=== PATIENT | male | born 1960 | race Caucasian/White ===

== ENCOUNTER 2016-09-28 10:55 | Inpatient (IN) | payer SELFPAY ==
[~2016-09-28] VITALS: Ht 180.3 cm; Wt 99.3 kg
[~2016-09-28 10:55] MED LIST: ALDACTONE 25MG25 M1 PO; AMOXICILLIN 50500 MG PO; ASPIRIN 32325 MG/TA1 PO; ASPIRIN E.C. 8181 MG PO; CORDARONE200 MG/TAB PO; COREG3.125 MG PO; COREG6.25 MG PO; FOLATE; IBUPROFEN 200200 MG PO; IMDUR30 MG PO; KLOR-CON 1010 MEQ PO; LANOXIN 0.25M0.25 MG PO; LASIX 40MG TABL40 MG PO; LASIX20 MG PO; LEVAQUIN 750MG750 M1 PO; LISINOPRIL10 MG PO; LOPRESSOR 225 MG/TAB PO; LOPRESSOR 550 MG/TAB PO; METOPROLOL TART25 MG PO; MOTRIN 400400 MG/TAB PO; MULTIPLE VITAMI1 CAP PO; POTASSIUM CL 220 MEQ PO; PREDNISONE10 MG PO; PREDNISONE20 MG PO; THIAMINE-100100 MG PO; TUSS PO; TYLENOL EXTRA500 M1 PO; VENTOLIN0.09 MG IH; VOLTAREN GEL 1%1 TU TP; ZESTRIL 10MG10 MG PO; ZESTRIL10 MG PO
[2016-09-28] MEDS ORDERED: TOPROL XL 25MG25 MG PO (11:40)
[2016-09-28] MEDS ORDERED: LASIX 20MG TABL20 MG PO (11:40)
[2016-09-28] MEDS ORDERED: ASPIRIN 32325 MG/TAB PO (11:41)
[2016-09-28] MEDS ORDERED: MOTRIN 400400 MG/TAB PO (11:41)
[2016-09-28 12:12] LABS: BASO # 0.1 (0.0-0.2); BASO % 0.6 % (0.0-2.0); EOS # 0.3 (0.0-0.7); EOS % 3.4 % (0-4.0); GRAN # 5.6 (1.4-6.5); GRAN % 57.4 % (42.2-75.2); HEMATOCRIT 42.7 % (42.0-52.0); HEMOGLOBIN 14.1 g/dl (13.5-18.0); LYMPH % 30.6 % (20.0-51.0); MEAN CELL VOLUME 94 fl (80.0-100.0); MEAN CORPUSCULAR HEMOGLOBIN 31 pg (27.0-31.0); MEAN CORPUSCULAR HGB CONC 33 g/dl (33.0-37.0); MEAN PLATELET VOLUME 9.9 fl (7.4-10.4); MONO # 0.7 (0.1-0.6); MONO % 7.3 % (1.7-9.3); PLATELET COUNT 266 K/mm3 (130-400); RED BLOOD COUNT 4.54 M/mm3 (4.20-5.60); REDCELL DISTRIBUTION WIDTH-CV 14.1 % (11.5-14.5); WHITE BLOOD COUNT 9.8 K/mm3 (4.8-10.8)
[2016-09-28 12:20] LABS: PARTIAL THROMBOPLASTIN TIME 34.7 SECONDS (26.0-37.0)
[2016-09-28 12:22] LABS: ADJUSTED CALCIUM 9.3 mg/dL (8.4-10.2); ALANINE AMINOTRANSFERASE 17 U/L (21-72); ALKALINE PHOSPHATASE 93 U/L (50-136); ANION GAP 12 mmol/L (7-16); BILIRUBIN,TOTAL 0.8 mg/dL (0.0-1.0); BLOOD UREA NITROGEN 23 mg/dL (9-20); CALCIUM 9.3 mg/dL (8.4-10.2); CARBON DIOXIDE 24 mmol/L (22-30); CHLORIDE 106 mmol/L (98-107); CREATININE, serum 0.87 mg/dL (0.66-1.25); GLUCOSE 94 mg/dL (74-106); LIPASE 53 U/L (23-300); POTASSIUM 4.5 mmol/L (3.4-5.0); SODIUM 142 mmol/L (137-145); TOTAL PROTEIN 7.5 gm/dL (6.4-8.2)
[2016-09-28 12:34] LABS: B-TYPE NATRIURETIC PEPTIDE 5810 pg/mL (0-125); INR 1.1 (0.8-3.0); PROTHROMBIN TIME 12.1 SECONDS (9.7-12.8)
[2016-09-28 12:40] LABS: TROPONIN-I < 0.012 ng/mL (0.000-0.034)
[2016-09-28] MEDS ORDERED: LASIX 40MG TABL40 MG PO (13:04)
[2016-09-28] MEDS ORDERED: LOPRESSOR 225 MG/TAB PO (13:05)
[2016-09-28 13:24] LABS: PH 5 (5-8); SQUAMOUS EPITHELIAL None Seen /hpf; URINE APPEARANCE Turbid; URINE BACTERIA None Seen /hpf; URINE BILIRUBIN Negative (NEGATIVE); URINE BLOOD Negative (NEGATIVE); URINE COLOR Amber; URINE GLUCOSE Negative (NEGATIVE); URINE KETONE Negative (NEGATIVE); URINE UROBILINOGEN Negative (NEGATIVE); URINE WBC None Seen /hpf
[2016-09-28 14:25] VITALS: BP 107/69; PULSE 77; TEMP 97.7
[2016-09-28 17:21] VITALS: BP 101/59; PULSE 75; TEMP 97.9
[2016-09-28 20:06] VITALS: BP 103/64; PULSE 80; TEMP 98.2
[2016-09-28 20:46] VITALS: BP 111/68; PULSE 80
[2016-09-28 22:42] VITALS: BP 96/61; PULSE 70; TEMP 97.9
[2016-09-28 23:30] VITALS: BP 106/76; PULSE 67
[2016-09-29] VITALS (316 sets, daily range): BP systolic 97–124; BP diastolic 62–97; PULSE 63–105; TEMP 97.6–98.4; O2SAT 90–100
[2016-09-29 15:20] LABS: CALCIUM 8.9 mg/dL (8.4-10.2); CREATININE, serum 0.8 mg/dL (0.66-1.25); MAGNESIUM 1.8 mg/dL (1.6-2.3); PHOSPHOROUS 3.9 mg/dL (2.5-4.5)
[2016-09-30] VITALS (18 sets, daily range): BP systolic 93–113; BP diastolic 50–71; PULSE 62–80; TEMP 97.1–98.3
[2016-09-30 07:04] LABS: BASO # 0.1 (0.0-0.2); BASO % 0.6 % (0.0-2.0); EOS # 0.4 (0.0-0.7); GRAN # 5.5 (1.4-6.5); GRAN % 57.9 % (42.2-75.2); HEMATOCRIT 42.5 % (42.0-52.0); HEMOGLOBIN 14.2 g/dl (13.5-18.0); LYMPH # 2.7 (1.2-3.4); LYMPH % 28.6 % (20.0-51.0); MEAN CELL VOLUME 93 fl (80.0-100.0); MEAN CORPUSCULAR HEMOGLOBIN 31 pg (27.0-31.0); MEAN CORPUSCULAR HGB CONC 33 g/dl (33.0-37.0); MEAN PLATELET VOLUME 10.5 fl (7.4-10.4); MONO # 0.8 (0.1-0.6); MONO % 8.6 % (1.7-9.3); PLATELET COUNT 252 K/mm3 (130-400); RED BLOOD COUNT 4.57 M/mm3 (4.20-5.60); REDCELL DISTRIBUTION WIDTH-CV 14.2 % (11.5-14.5); WHITE BLOOD COUNT 9.5 K/mm3 (4.8-10.8)
[2016-09-30 07:11] LABS: CALCIUM 9.1 mg/dL (8.4-10.2); CREATININE, serum 0.88 mg/dL (0.66-1.25); MAGNESIUM 1.9 mg/dL (1.6-2.3); PHOSPHOROUS 3.9 mg/dL (2.5-4.5); POTASSIUM 3.6 mmol/L (3.4-5.0)
[2016-09-30 07:19] LABS: INR 1.1 (0.8-3.0); PROTHROMBIN TIME 12.5 SECONDS (9.7-12.8)
[2016-10-01] VITALS (7 sets, daily range): BP systolic 91–118; BP diastolic 53–78; PULSE 43–78; TEMP 97.4–98.6
[2016-10-01 07:22] LABS: BASO % 0.5 % (0.0-2.0); EOS # 0.3 (0.0-0.7); EOS % 4.1 % (0-4.0); GRAN # 4.7 (1.4-6.5); GRAN % 59.5 % (42.2-75.2); LYMPH # 2.2 (1.2-3.4); LYMPH % 27.9 % (20.0-51.0); MEAN CELL VOLUME 93 fl (80.0-100.0); MEAN CORPUSCULAR HEMOGLOBIN 31 pg (27.0-31.0); MEAN CORPUSCULAR HGB CONC 33 g/dl (33.0-37.0); MEAN PLATELET VOLUME 10.2 fl (7.4-10.4); MONO # 0.6 (0.1-0.6); MONO % 7.6 % (1.7-9.3); PLATELET COUNT 240 K/mm3 (130-400); RED BLOOD COUNT 4.52 M/mm3 (4.20-5.60); REDCELL DISTRIBUTION WIDTH-CV 14.1 % (11.5-14.5); WHITE BLOOD COUNT 7.9 K/mm3 (4.8-10.8)
[2016-10-01 07:45] LABS: CALCIUM 9.3 mg/dL (8.4-10.2); CREATININE, serum 0.92 mg/dL (0.66-1.25); POTASSIUM 3.6 mmol/L (3.4-5.0)
[2016-10-01] MEDS ORDERED: CAPOTEN 12.512.5 MG PO (10:16)
[2016-10-01] MEDS ORDERED: PROTOP 0.03% 30GM TP (10:45)
[2016-10-02 03:57] VITALS: BP 99/62; PULSE 63; TEMP 98.2
[2016-10-02 07:21] LABS: BASO % 0.4 % (0.0-2.0); EOS # 0.3 (0.0-0.7); EOS % 3.2 % (0-4.0); GRAN # 4.8 (1.4-6.5); GRAN % 59.6 % (42.2-75.2); HEMATOCRIT 41.9 % (42.0-52.0); LYMPH # 2.2 (1.2-3.4); LYMPH % 27.4 % (20.0-51.0); MEAN CELL VOLUME 93 fl (80.0-100.0); MEAN CORPUSCULAR HEMOGLOBIN 31 pg (27.0-31.0); MEAN CORPUSCULAR HGB CONC 33 g/dl (33.0-37.0); MEAN PLATELET VOLUME 10.3 fl (7.4-10.4); MONO # 0.7 (0.1-0.6); MONO % 8.9 % (1.7-9.3); PLATELET COUNT 232 K/mm3 (130-400); RED BLOOD COUNT 4.51 M/mm3 (4.20-5.60); REDCELL DISTRIBUTION WIDTH-CV 13.9 % (11.5-14.5); WHITE BLOOD COUNT 8.1 K/mm3 (4.8-10.8)
[2016-10-02 07:50] VITALS: BP 105/65; PULSE 72; TEMP 96.3
[2016-10-02 08:12] LABS: CALCIUM 9.3 mg/dL (8.4-10.2); CREATININE, serum 1.05 mg/dL (0.66-1.25); POTASSIUM 3.5 mmol/L (3.4-5.0)
[2016-10-02] MEDS ORDERED: PACERONE400 MG PO (10:59)
[2016-10-02] MEDS ORDERED: COREG12.5 MG PO (11:00)
[2016-10-02] MEDS ORDERED: DEMADEX 20MG20 M1 PO (11:00)
== END 2016-10-02 13:23 | disposition home or self-care (01) | DRG 287 ==
LOC: COL.ER 10:55 → MEDICAL 13:26 → IMCU 09-29 00:07 → MEDICAL 09-29 12:25
PROVIDERS: Internal Medicine; Internal Medicine Cardiovascular Disease; Physician Assistant
PROC: B2111ZZ Fluoroscopy of Multiple Coronary Arteries using Low Osmolar Contrast (ICD-10-PCS; principal; 2016-09-30)
PROC: 4A023N7 Measurement of Cardiac Sampling and Pressure, Left Heart, Percutaneous Approach (ICD-10-PCS; 2016-09-30)
DX: I50.21 Acute systolic (congestive) heart failure (principal); I47.2 Ventricular tachycardia; I42.9 Cardiomyopathy, unspecified; M45.9 Ankylosing spondylitis of unspecified sites in spine; L40.50 Arthropathic psoriasis, unspecified; F17.210 Nicotine dependence, cigarettes, uncomplicated
CPT/HCPCS: 99223-AI; 99232-AI; 99239; C1769; C1894; J0282; J1644; J1650; J1940; J2250; J3010; J7060; Q9967

== ENCOUNTER 2018-08-12 10:54 | Inpatient (IN) | payer OTHER ==
[~2018-08-12] VITALS: Ht 152.4 cm; Wt 95.5 kg
[~2018-08-12 10:54] MED LIST changes: +ASPIRIN 32325 MG/TAB PO; +CAPOTEN 12.512.5 MG PO; +COREG12.5 MG PO; +DEMADEX 20MG20 M1 PO; +LASIX 20MG TABL20 MG PO; +PACERONE400 MG PO; +PROTOP 0.03% 30GM TP; +TOPROL XL 25MG25 MG PO
[2018-08-12 12:14] LABS: BASO # 0.1 (0.0-0.2); BASO % 0.7 % (0.0-2.0); EOS # 0.6 (0.0-0.7); EOS % 7.3 % (0-4.0); GRAN # 4.5 (1.4-6.5); GRAN % 55.5 % (42.2-75.2); HEMATOCRIT 38.7 % (42.0-52.0); HEMOGLOBIN 12.4 g/dl (13.5-18.0); LYMPH # 2.4 (1.2-3.4); LYMPH % 29.6 % (20.0-51.0); MEAN CELL VOLUME 93 fl (80.0-100.0); MEAN CORPUSCULAR HEMOGLOBIN 30 pg (27.0-31.0); MEAN CORPUSCULAR HGB CONC 32 g/dl (33.0-37.0); MEAN PLATELET VOLUME 9.7 fl (7.4-10.4); MONO # 0.5 (0.1-0.6); MONO % 6.7 % (1.7-9.3); PLATELET COUNT 272 K/mm3 (130-400); RED BLOOD COUNT 4.16 M/mm3 (4.20-5.60); REDCELL DISTRIBUTION WIDTH-CV 15.5 % (11.5-14.5)
[2018-08-12 12:25] LABS: ALBUMIN 3.6 gm/dL (3.5-5.0); BILIRUBIN,TOTAL 0.8 mg/dL (0.0-1.0); CALCIUM 9.4 mg/dL (8.4-10.2); CREATININE, serum 1.01 mg/dL (0.66-1.25); INR 1.3 (0.8-3.0); MAGNESIUM 1.9 mg/dL (1.6-2.3); POTASSIUM 4.3 mmol/L (3.4-5.0); PROTHROMBIN TIME 14.4 SECONDS (9.7-12.8); TOTAL PROTEIN 6.8 gm/dL (6.4-8.2)
[2018-08-12 12:27] LABS: PARTIAL THROMBOPLASTIN TIME 32.4 SECONDS (26.0-37.0)
[2018-08-12 12:37] LABS: TROPONIN-I 0.013 ng/mL (0.000-0.034)
[2018-08-12 16:03] VITALS: BP 131/52; PULSE 51; TEMP 98.4
[2018-08-12] MEDS ORDERED: ASPIRIN 32325 MG/TAB PO (16:16)
[2018-08-12] MEDS ORDERED: PROTOP 0.03% 30GM TP (16:18)
--- NOTE | 2018-08-12 16:35 | NUR ---
pT arrived to Medical from ED, oriented to room, physical assessment completed, INT to RAC s redness/swelling and easy flush. Pt on RA, denies SOB and dizziness, independen to bathroom. No further needs, call light in reach
[2018-08-12 16:57] VITALS: BP 115/73; PULSE 73; TEMP 98.3
--- NOTE | 2018-08-12 18:19 | NUR ---
Since pt arrived to unit he has denied SOB and pain. Lungs are clear throughout. INT to rAC s redness/swelling. pt is independen tin room, currently fact checking the president's speech, denies needs, call light in reach
--- NOTE | 2018-08-12 18:21 | NUR ---
Pt is NSR on tele
--- NOTE | 2018-08-12 18:57 | NUR ---
Report given to Luna BARLOW, pt finished dinner, working on computer, denies needs
--- NOTE | 2018-08-12 20:26 | NUR ---
PT IN BED WITH HOB ELEVATED TO 45 DEGREE ANGLE. PT WATCHING TV, HAS NO C/O PAIN OR DISCOMFORT, RESP EVEN AND UNLABORED, HAS RIGHT SIDE WHEEZING ON INHALATION, PT HAS C/O A LITTLE SOB, BUT HE BELIEVES IT IS BECAUSE HIS BELLY IS FULLY. CALL LIGHT WITHIN REACH.
[2018-08-12 21:50] VITALS: BP 85/59; PULSE 66; TEMP 98
[2018-08-13] VITALS (10 sets, daily range): BP systolic 80–105; BP diastolic 61–74; PULSE 69–75; TEMP 97.8–98
--- NOTE | 2018-08-13 00:57 | NUR ---
RECEIVED CALL FROM JORDON IN [place] AND HE ADVISED A WHILE AGO THAT PT WENT INTO A-FIB AND RVR WITH VARIENCES. CALLED CHALINO PEDRAZA AND SHE ADVISED TO MONITOR FOR NOT, BUT IF HE SHOULD GO INTO A-FIB AND STAY IN IT THEN WE WILL GET AN EKC.
--- NOTE | 2018-08-13 06:34 | NUR ---
PT AWAKE ALL NIGHT ON LAPTOP COMPUTER IN ROOM. PT SAT UP AT 60 DEGREE ANGLE. PT DENIES ANY PAIN OR DISCOMFORT. CALL LIGHT WITHIN REACH.
[2018-08-13 06:39] LABS: BASO # 0.1 (0.0-0.2); BASO % 0.8 % (0.0-2.0); EOS # 0.5 (0.0-0.7); EOS % 6.3 % (0-4.0); GRAN # 4.2 (1.4-6.5); HEMATOCRIT 39.4 % (42.0-52.0); HEMOGLOBIN 12.4 g/dl (13.5-18.0); LYMPH # 2.8 (1.2-3.4); LYMPH % 34.2 % (20.0-51.0); MEAN CELL VOLUME 93 fl (80.0-100.0); MEAN CORPUSCULAR HEMOGLOBIN 29 pg (27.0-31.0); MEAN CORPUSCULAR HGB CONC 32 g/dl (33.0-37.0); MONO # 0.6 (0.1-0.6); MONO % 7.3 % (1.7-9.3); PLATELET COUNT 255 K/mm3 (130-400); RED BLOOD COUNT 4.22 M/mm3 (4.20-5.60); REDCELL DISTRIBUTION WIDTH-CV 15.7 % (11.5-14.5)
[2018-08-13 06:55] LABS: CALCIUM 9.4 mg/dL (8.4-10.2); CREATININE, serum 1.1 mg/dL (0.66-1.25); MAGNESIUM 1.9 mg/dL (1.6-2.3)
--- NOTE | 2018-08-13 09:39 | NUR ---
Assessment completed, alert/oriented, vital signs stable, continues to report abdomnial distention an discomfort, reports feeling very "tender and bloated", reminded to use urinal and call us so we can measure I/O's, heart RRR/distal pulses are palpable, lungs CTA/ diminished in bases, has some small effussions on CXR, 1+ edema to BLE and this is baseline for him, denies other needs at this time, stitting up in bed on his laptop at [facility]
--- NOTE | 2018-08-13 14:56 | NUR ---
SW attended clinical rounding and met with patient to discuss discharge planning. 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 talked with patient about getting his medications as he reports they should all be on the $5 list at [facility]. Patients pcp is [facility] and reports his pharmacy is [facility]. MIRIAM will continue to follow as patient will need to get medications filled at [facility]. He is working with Jv in [employer] to check the status of his medicaid dilan.
--- NOTE | 2018-08-13 20:01 | NUR ---
PT IN BED WITH HOB AT 45 DEGREE ANGLE. PT ADVISES THAT HE STILL IS CONSTIPATED AND FEELS BLOATED. PT DENIES PAIN. PT HAS NOT SLEPT YET. PT REPORTS THAT EVERY TIME HE TRIES TO SLEEP HE FEELS HIS HEART PALPATING AND HE DOES NOT WANT TO THROUGH THE MONITORS OFF. NO NEEDS AT THIS TIME, CALL LIGHT WITHIN REAC.
[2018-08-14] VITALS (8 sets, daily range): BP systolic 79–106; BP diastolic 47–71; PULSE 63–74; TEMP 97–98
--- NOTE | 2018-08-14 02:38 | NUR ---
PT STILL HAS NO SLEPT THIS SHIFT. PT STILL ON COMPUTER AND WATCHING TV IN BED. PT HAD C/O CONSTIPATION, GAVE PT PRUNE JUICE. PT DENIES PAIN OR DISCOMFORT AND NO FURTHER NEEDS. CALL LIGHT WITHIN REACH.
[2018-08-14 07:33] LABS: BASO # 0.1 (0.0-0.2); BASO % 0.7 % (0.0-2.0); EOS # 0.6 (0.0-0.7); EOS % 7.9 % (0-4.0); GRAN % 57.7 % (42.2-75.2); HEMATOCRIT 40.2 % (42.0-52.0); HEMOGLOBIN 12.9 g/dl (13.5-18.0); LYMPH # 1.8 (1.2-3.4); MEAN CELL VOLUME 92 fl (80.0-100.0); MEAN CORPUSCULAR HEMOGLOBIN 30 pg (27.0-31.0); MEAN CORPUSCULAR HGB CONC 32 g/dl (33.0-37.0); MEAN PLATELET VOLUME 10.1 fl (7.4-10.4); MONO # 0.6 (0.1-0.6); MONO % 8.4 % (1.7-9.3); PLATELET COUNT 255 K/mm3 (130-400); RED BLOOD COUNT 4.37 M/mm3 (4.20-5.60); REDCELL DISTRIBUTION WIDTH-CV 15.8 % (11.5-14.5)
[2018-08-14 07:45] LABS: CALCIUM 9.2 mg/dL (8.4-10.2); CREATININE, serum 1.28 mg/dL (0.66-1.25); MAGNESIUM 1.8 mg/dL (1.6-2.3); POTASSIUM 3.2 mmol/L (3.4-5.0)
--- NOTE | 2018-08-14 07:45 | NUR ---
Pt AAOX3. Limited neck movements d/t ankylosing spondylitis. Pt complaining of abdominal discomfort/distention. Abdomen appears rounded and soft upon palpation. Upon percussion of abdomen: dull sound in left lower & left upper quadrant; tympanic/normal sounds percussed in all other quadrants. Pt independent in room. States upon admission pt "became SOB by the end of speaking a sentence - now I can walk around room and Im only a little short of breath." Call light and telephone within reach. No additional complaints at this time.
--- NOTE | 2018-08-14 19:16 | NUR ---
REPORT GIVEN TO YEN DAVID.
--- NOTE | 2018-08-14 20:30 | NUR ---
Initial shift assessment done- states does have some abd pain 5/10-denies need for pain meds, No SOB,Tele on. States did have a small stool today.
--- NOTE | 2018-08-14 22:30 | NUR ---
States having some back pain 12/04,would like something for the pain- states its his arthritis- will call Loraine WILLIAMSON for orders
[2018-08-15 04:15] VITALS: BP 119/62; PULSE 66; TEMP 97.6
--- NOTE | 2018-08-15 06:36 | NUR ---
Quiet night- did sleep fair last night,, pt states Tylenol did help with back pain last night.
[2018-08-15 07:11] LABS: CALCIUM 9.1 mg/dL (8.4-10.2); CREATININE, serum 1.03 mg/dL (0.66-1.25); POTASSIUM 3.3 mmol/L (3.4-5.0)
[2018-08-15 07:15] VITALS: BP 110/72; PULSE 71; TEMP 97.7
--- NOTE | 2018-08-15 07:43 | NUR ---
Pt alert and oriented. Pt stable but tired. Pt did not sleep much last NOC. Pt has laptop at bedside table and watching clem[place] show. Pt am assessment completed. Pt given am meds and K+ per protocol. Pt edu given. Pt rates pain 4/10 in back d/t chronic arthritis. Pt encouraged to move about today. Pt has call light in reach and denies SOB, or dizziness.
[2018-08-15] MEDS ORDERED: ZESTRIL2.5 MG PO (10:18)
[2018-08-15] MEDS ORDERED: ASPIRIN 32325 MG/TAB PO (10:23)
[2018-08-15] MEDS ORDERED: TYLENOL 325MG325 MG PO (10:23)
[2018-08-15] MEDS ORDERED: DEMADEX 20MG20 M1 PO (10:24)
[2018-08-15] MEDS ORDERED: ZAROXOLYN 2.52.5 MG PO (10:24)
[2018-08-15] MEDS ORDERED: COLACE 100100 MG/CAP PO (10:25)
[2018-08-15] MEDS ORDERED: LEVAQUIN 750MG750 M1 PO (10:26)
[2018-08-15] MEDS ORDERED: FLAGYL500 MG PO (10:26)
[2018-08-15] MEDS ORDERED: COREG12.5 MG PO (10:27)
--- NOTE | 2018-08-15 11:19 | NUR ---
Pt alert and oriented. Pt denies SOB, dizziness and pain at this time. Pt ready to go home and has received orders. Pt given DC instructions and medication education provided and pt denies questions and verbalizes understanding. Pt given discount coupon for [employer] at [facility]. Pt will berry picker meds at [facility]. [facility] edu reviewed. Pt IV dc'd and tip intact and no redness or infiltration noted. Pt has all belongings and will be escorted by aide to private car. Pt has DC folder with edu and instructions.
== END 2018-08-15 11:30 | disposition home or self-care (01) | DRG 291 ==
LOC: COL.ER 10:54 → MEDICAL 14:47
PROVIDERS: Emergency Medicine; Nurse Practitioner Family; Physician Assistant
DX: I50.23 Acute on chronic systolic (congestive) heart failure (principal); J96.01 Acute respiratory failure with hypoxia; N17.9 Acute kidney failure, unspecified; K57.32 Diverticulitis of large intestine without perforation or abscess without bleeding; I42.0 Dilated cardiomyopathy; F17.210 Nicotine dependence, cigarettes, uncomplicated; L40.50 Arthropathic psoriasis, unspecified; M45.9 Ankylosing spondylitis of unspecified sites in spine; Z95.810 Presence of automatic (implantable) cardiac defibrillator; D64.9 Anemia, unspecified; Z91.14 Patient's other noncompliance with medication regimen; E87.6 Hypokalemia
CPT/HCPCS: 99223-AI; 99231-AI; 99239; J1650; J1940

== ENCOUNTER → 2018-11-26 | Outpatient (CLI) | payer SELFPAY ==
[~2018-11-26] MED LIST changes: +COLACE 100100 MG/CAP PO; +FLAGYL500 MG PO; +TYLENOL 325MG325 MG PO; +ZAROXOLYN 2.52.5 MG PO; +ZESTRIL2.5 MG PO
[2018-11-26 16:31] LABS: COLLECTION METHOD CLEAN CATCH
[2018-11-26 16:36] LABS: HEMOGLOBIN 14.5 g/dl (13.5-18.0); MEAN CELL VOLUME 96 fl (80.0-100.0); MEAN CORPUSCULAR HEMOGLOBIN 32 pg (27.0-31.0); MEAN CORPUSCULAR HGB CONC 33 g/dl (33.0-37.0); MEAN PLATELET VOLUME 9.1 fl (7.4-10.4); PLATELET COUNT 296 K/mm3 (130-400); RED BLOOD COUNT 4.58 M/mm3 (4.20-5.60); REDCELL DISTRIBUTION WIDTH-CV 15.9 % (11.5-14.5)
[2018-11-26 16:38] LABS: MUCOUS Present /lpf; PH 5 (5-8); SQUAMOUS EPITHELIAL None Seen /hpf; URINE APPEARANCE Clear; URINE BACTERIA None Seen /hpf; URINE BILIRUBIN Negative (NEGATIVE); URINE BLOOD Negative (NEGATIVE); URINE COLOR Amber; URINE GLUCOSE Negative (NEGATIVE); URINE KETONE Negative (NEGATIVE); URINE LEUKOCYTE ESTERASE Negative (NEGATIVE); URINE NITRATE Negative (NEGATIVE); URINE PROTEIN(semi-quant) Negative (NEGATIVE); URINE RBC 0-2 /hpf; URINE UROBILINOGEN Negative (NEGATIVE); URINE WBC 0-2 /hpf
[2018-11-26 16:44] LABS: ALANINE AMINOTRANSFERASE < 6 U/L (21-72); ALKALINE PHOSPHATASE 113 U/L (50-136); ANION GAP 4 mmol/L (7-16); AST,SGOT 19 U/L (15-37); BILIRUBIN,TOTAL 0.8 mg/dL (0.0-1.0); BLOOD UREA NITROGEN 16 mg/dL (9-20); CALCIUM 9.5 mg/dL (8.4-10.2); CARBON DIOXIDE 28 mmol/L (22-30); CHLORIDE 106 mmol/L (98-107); GLUCOSE 101 mg/dL (74-106); POTASSIUM 3.7 mmol/L (3.4-5.0); SODIUM 139 mmol/L (137-145); TOTAL PROTEIN 7.8 gm/dL (6.4-8.2)
== END ==
LOC: COL.LAB 15:46
PROVIDERS: Family Medicine
DX: R10.30 Lower abdominal pain, unspecified (principal)

== ENCOUNTER → 2018-12-02 | Outpatient (CLI) | payer SELFPAY | LOC: COL.RAD 11:09 | DX: K57.30 Diverticulosis of large intestine without perforation or abscess without bleeding (principal); K42.9 Umbilical hernia without obstruction or gangrene; K41.90 Unilateral femoral hernia, without obstruction or gangrene, not specified as recurrent | CPT/HCPCS: Q9967 ==

== ENCOUNTER → 2018-12-25 | Outpatient (CLI) | payer SELFPAY | LOC: COL.CARD 06:58 | DX: I50.9 Heart failure, unspecified (principal); I42.9 Cardiomyopathy, unspecified ==

== ENCOUNTER 2018-12-30 11:28 | Day surgery (SDC) | payer SELFPAY ==
[~2018-12-30] VITALS: Ht 177.8 cm; Wt 94.3 kg
[2018-12-30] MEDS ORDERED: DEMADEX 20MG20 M1 PO (11:58)
[2018-12-30] MEDS ORDERED: COREG12.5 MG PO (11:59)
[2018-12-30] MEDS ORDERED: ZESTRIL2.5 MG PO (11:59)
[2018-12-30 12:00] LABS: HEMATOCRIT 46.5 % (42.0-52.0); HEMOGLOBIN 15.4 g/dl (13.5-18.0); MEAN CELL VOLUME 96 fl (80.0-100.0); MEAN CORPUSCULAR HEMOGLOBIN 32 pg (27.0-31.0); MEAN CORPUSCULAR HGB CONC 33 g/dl (33.0-37.0); MEAN PLATELET VOLUME 9.6 fl (7.4-10.4); PLATELET COUNT 281 K/mm3 (130-400); RED BLOOD COUNT 4.86 M/mm3 (4.20-5.60)
[2018-12-30 12:01] VITALS: BP 101/70; PULSE 74; TEMP 98
[2018-12-30] MEDS ORDERED: ZAROXOLYN 2.52.5 MG PO (12:01)
[2018-12-30 12:03] LABS: PROTHROMBIN TIME 11.8 SECONDS (9.7-12.8)
[2018-12-30 12:04] LABS: CALCIUM 9.3 mg/dL (8.4-10.2); CREATININE, serum 0.99 (0.66-1.25); POTASSIUM 4.6 mmol/L (3.4-5.0)
[2018-12-30 12:53] VITALS: BP 106/65; PULSE 52
--- NOTE | 2018-12-30 12:55 | NUR ---
ALL MEDICATION GIVEN VORB WITH MD. SEE MERGE FOR ALL MEDICATION ADMIN TIMES. SEE MERGE FOR ALL RASS ASSESSMENTS DURING AND POST PROCEDURE.
[2018-12-30 13:38] VITALS: BP 110/70; PULSE 68; TEMP 98
[2018-12-30 13:56] VITALS: BP 103/75; PULSE 70; TEMP 98
[2018-12-30 14:38] VITALS: BP 101/72; PULSE 68; TEMP 98
[2018-12-30] MEDS ORDERED: CEPHALEXIN500 M1 PO (14:49)
--- NOTE | 2018-12-30 15:30 | NUR ---
INT discontinued intact. Discharge instruction given.
[2018-12-30 15:38] VITALS: BP 103/78; PULSE 74; TEMP 98
--- NOTE | 2018-12-30 15:49 | NUR ---
Transferred to private car by zeke
== END 2018-12-30 15:50 | disposition home or self-care (01) ==
LOC: COL.CAR 11:28
PROVIDERS: Internal Medicine Cardiovascular Disease
DX: Z45.02 Encounter for adjustment and management of automatic implantable cardiac defibrillator (principal); I42.8 Other cardiomyopathies; I47.2 Ventricular tachycardia; I34.0 Nonrheumatic mitral (valve) insufficiency; I48.1 Persistent atrial fibrillation; Z79.82 Long term (current) use of aspirin; I07.1 Rheumatic tricuspid insufficiency; Z79.899 Other long term (current) drug therapy; I77.810 Thoracic aortic ectasia; F17.210 Nicotine dependence, cigarettes, uncomplicated; Z82.3 Family history of stroke; L40.9 Psoriasis, unspecified; Z82.49 Family history of ischemic heart disease and other diseases of the circulatory system
CPT/HCPCS: J0690; J2250; J7030

== ENCOUNTER 2019-01-19 11:38 | Day surgery (SDC) | payer SELFPAY ==
[~2019-01-19] VITALS: Ht 177.8 cm; Wt 42.1 kg
[2019-01-19] VITALS (9 sets, daily range): BP systolic 77–100; BP diastolic 51–62; PULSE 60–84; TEMP 87–98
[~2019-01-19 11:38] MED LIST changes: +CEPHALEXIN500 M1 PO
[2019-01-19] MEDS ORDERED: COREG 6.256.25 MG/TA PO (12:01)
[2019-01-19] MEDS ORDERED: DEMADEX 20MG20 M1 PO (12:03)
[2019-01-19] MEDS ORDERED: ASPIRIN 32325 MG/TAB PO (12:05)
[2019-01-19 12:43] LABS: CALCIUM 9.4 mg/dL (8.4-10.2); CREATININE, serum 0.97 (0.66-1.25); POTASSIUM 3.8 mmol/L (3.4-5.0)
--- NOTE | 2019-01-19 18:10 | NUR ---
PT TO ROOM 323 POSTOP WITH REPORT FROM PASHA BARLOW PACU @ 0152. VSS, INCISION TO ABDOMEN CDI X3, PT IS ON TELE FOR A-FIB AND EF OF 25%. NO OTHER ISSUES AT THIS TIME.
--- NOTE | 2019-01-19 18:56 | NUR ---
REPORT TO JAZMYNE RN
--- NOTE | 2019-01-19 21:00 | NUR ---
Patient in bed. Has eaten regular diet without problem. IVF complete, capped at this time. SL to left hand without redness or swelling. Reports pain 6/10 to abdomen with movement or cough. Robotic sites x3 to abdomen dry.
--- NOTE | 2019-01-19 22:30 | NUR ---
Patient up to void. Reports pain /10 to abdomen. Medicated with [place] 5/325mg 1 tab at this time. SL to left wrist without redness or swelling.
[2019-01-20 01:55] VITALS: BP 117/65; PULSE 66; TEMP 98
[2019-01-20 02:00] VITALS: BP 117/65; PULSE 66; TEMP 98
[2019-01-20 04:03] VITALS: BP 91/60; PULSE 62; TEMP 97.7
--- NOTE | 2019-01-20 04:30 | NUR ---
Patient offers no concerns at this time. Has been up to void x2.
[2019-01-20 07:57] VITALS: BP 110/68; PULSE 71; TEMP 97.6
--- NOTE | 2019-01-20 10:04 | NUR ---
MIRIAM met with the patient to discuss discharge plan. The patient lives alone in [place]. He reports his father, Jonathan Hirsch, is his next of kin and his person to contact. He reports independence with ADLs and has a cane. The patient receives primary care at the [facility] and he receives his medications at the [facility]. He reports that at times, he does have difficulties affording his meds. MIRIAM discussed the GoodRx application. The patient reports that he does have a GoodRx card. The patient is self pay. MIRIAM notified financial counselor, Noy. The patient does not have advanced directives and he was not interested in completing them at this time. The patient plans to return home upon discharge. No additional needs at this time.
--- NOTE | 2019-01-20 10:08 | NUR ---
DISCHARGE ORDERS RECIEVED AND GIVEN TO PATEINT. PT TAKEN BY WHEEL CHAIR TO FRONT.
== END 2019-01-20 10:45 | disposition home or self-care (01) ==
LOC: SDCO 11:38 → SURG 17:50 → SDCO 01-20 10:45
PROVIDERS: Nurse Anesthetist, Certified Registered
DX: K41.90 Unilateral femoral hernia, without obstruction or gangrene, not specified as recurrent (principal); K40.90 Unilateral inguinal hernia, without obstruction or gangrene, not specified as recurrent; D17.6 Benign lipomatous neoplasm of spermatic cord; Z79.82 Long term (current) use of aspirin; L40.50 Arthropathic psoriasis, unspecified; I11.0 Hypertensive heart disease with heart failure; I50.21 Acute systolic (congestive) heart failure; Z80.3 Family history of malignant neoplasm of breast; Z95.810 Presence of automatic (implantable) cardiac defibrillator; F17.210 Nicotine dependence, cigarettes, uncomplicated; J44.9 Chronic obstructive pulmonary disease, unspecified; I42.8 Other cardiomyopathies; I08.1 Rheumatic disorders of both mitral and tricuspid valves; D64.9 Anemia, unspecified
CPT/HCPCS: OP; C1781; J0330; J0690; J1100; J1885; J2405; J2704; J2710; J3010; J7120

== ENCOUNTER 2019-06-16 06:56 | Day surgery (SDC) | payer SELFPAY ==
[~2019-06-16] VITALS: Ht 177.8 cm; Wt 96.2 kg
[~2019-06-16 06:56] MED LIST changes: +COUMADIN 22.5 MG/TAB PO; +COUMADIN 5MG5 MG/TAB PO
[2019-06-16 07:44] LABS: HEMATOCRIT 44.3 % (42.0-52.0); HEMOGLOBIN 14.8 g/dl (13.5-18.0); MEAN CELL VOLUME 94 fl (80.0-100.0); MEAN CORPUSCULAR HEMOGLOBIN 32 pg (27.0-31.0); MEAN CORPUSCULAR HGB CONC 33 g/dl (33.0-37.0); MEAN PLATELET VOLUME 9.1 fl (7.4-10.4); PLATELET COUNT 247 K/mm3 (130-400); REDCELL DISTRIBUTION WIDTH-CV 14.3 % (11.5-14.5)
[2019-06-16 07:49] LABS: INR 2.4 (0.8-3.0); PROTHROMBIN TIME 28.2 SECONDS (9.7-12.8)
[2019-06-16 07:50] VITALS: BP 93/67; PULSE 61; TEMP 97
[2019-06-16 07:51] LABS: PARTIAL THROMBOPLASTIN TIME 42.2 SECONDS (26.0-37.0)
[2019-06-16 07:57] LABS: CALCIUM 9.1 mg/dL (8.4-10.2); CREATININE, serum 1.07 (0.66-1.25); POTASSIUM 4.5 mmol/L (3.4-5.0)
[2019-06-16] MEDS ORDERED: ALDACTONE 25MG25 M1 PO (08:11)
[2019-06-16] MEDS ORDERED: COUMADIN 5MG5 MG/TAB PO (08:17)
--- NOTE | 2019-06-16 08:50 | NUR ---
Pt to procedure,report to Adolfo Bosch.
[2019-06-16 09:02] LABS: THYROID STIMULATING HORMONE 4.85 uIU/mL (0.465-4.680)
[2019-06-16] MEDS ORDERED: CORDARONE200 MG/TAB PO ×2 (09:29)
[2019-06-16 09:30] VITALS: BP 89/62; PULSE 72
[2019-06-16 09:45] VITALS: BP 86/54; PULSE 69
[2019-06-16 10:00] VITALS: BP 85/56; PULSE 69
[2019-06-16 10:15] VITALS: BP 83/45; PULSE 66
[2019-06-16 10:30] VITALS: BP 97/46; PULSE 70
--- NOTE | 2019-06-16 10:48 | NUR ---
Discharge instructions given to pt.pt verbalizes understanding.INT removed,catheter tip intact.pt escorted out via wheelchair by this nurse.
== END 2019-06-16 11:15 | disposition home or self-care (01) ==
LOC: COL.CAR 06:56
PROVIDERS: Internal Medicine Cardiovascular Disease
DX: I48.19 Other persistent atrial fibrillation (principal); I42.9 Cardiomyopathy, unspecified; I47.2 Ventricular tachycardia; F17.210 Nicotine dependence, cigarettes, uncomplicated; M45.9 Ankylosing spondylitis of unspecified sites in spine; Z79.01 Long term (current) use of anticoagulants; Z82.3 Family history of stroke; Z82.49 Family history of ischemic heart disease and other diseases of the circulatory system
CPT/HCPCS: J2704

== ENCOUNTER → 2020-05-09 | Outpatient (CLI) | payer SELFPAY ==
[2020-05-09 11:04] LABS: ALBUMIN 4.3 gm/dL (3.5-5.0); BILIRUBIN,TOTAL 0.8 mg/dL (0.0-1.0); CALCIUM 9.4 mg/dL (8.4-10.2); CREATININE, serum 1.46 (0.66-1.25); POTASSIUM 4.4 mmol/L (3.4-5.0); TOTAL PROTEIN 8.1 gm/dL (6.4-8.2)
[2020-05-09 11:35] LABS: THYROID STIMULATING HORMONE 3.34 uIU/mL (0.465-4.680)
== END ==
LOC: COL.LAB 09:58
DX: I50.9 Heart failure, unspecified (principal); J44.9 Chronic obstructive pulmonary disease, unspecified; I51.7 Cardiomegaly

== ENCOUNTER 2020-11-18 04:09 | Emergency (ER) | payer MEDICARE ==
[~2020-11-18] VITALS: Ht 180.3 cm; Wt 102.3 kg
[2020-11-18 04:18] VITALS: TEMP 98.7
[2020-11-18 04:53] LABS: STREP SCREEN NEGATIVE
[2020-11-18] MEDS ORDERED: TYLENOL 325MG325 MG PO (05:05)
[2020-11-18 05:15] VITALS: BP 165/84; PULSE 81
== END 2020-11-18 05:15 | disposition home or self-care (01) ==
LOC: COL.ER 04:09
PROVIDERS: Emergency Medicine
DX: J02.9 Acute pharyngitis, unspecified (principal); I50.9 Heart failure, unspecified; Z20.822 Contact with and (suspected) exposure to COVID-19; Z98.61 Coronary angioplasty status; Z95.810 Presence of automatic (implantable) cardiac defibrillator; Z79.01 Long term (current) use of anticoagulants
CPT/HCPCS: J1885

== ENCOUNTER 2021-09-08 04:52 | Observation (INO) | payer MEDICARE ==
[~2021-09-08] VITALS: Ht 177.8 cm; Wt 101.3 kg
[2021-09-08 05:22] LABS: BASO # 0.1 K/mm3 (0.0-0.2); BASO % 0.5 % (0.0-2.0); EOS # 0.3 K/mm3 (0.0-0.7); EOS % 1.7 % (0.0-4.0); GRAN % 67.6 % (42.2-75.2); HEMATOCRIT 48.5 % (42.0-52.0); LYMPH # 3.6 K/mm3 (1.2-3.4); LYMPH % 21.9 % (20.0-51.0); MEAN CELL VOLUME 99 fl (80.0-100.0); MEAN CORPUSCULAR HEMOGLOBIN 33 pg (27-31); MEAN CORPUSCULAR HGB CONC 33 g/dl (33.0-37.0); MONO # 1.2 K/mm3 (0.1-0.6); MONO % 7.3 % (1.7-9.3); PLATELET COUNT 300 K/mm3 (130-400); RED BLOOD COUNT 4.92 M/mm3 (4.20-5.60); REDCELL DISTRIBUTION WIDTH-CV 14.2 % (11.5-14.5)
[2021-09-08 05:30] LABS: COLLECTION METHOD CLEAN CATCH
[2021-09-08 05:30] LABS: INR 1.1 (0.8-3.0); PROTHROMBIN TIME 12.6 SECONDS (9.7-12.8)
[2021-09-08] MEDS ORDERED: PACERONE200 MG PO (05:32)
[2021-09-08 05:43] LABS: ALBUMIN 3.2 gm/dL (3.4-4.8); BILIRUBIN,TOTAL 0.8 mg/dL (0.2-1.2); CALCIUM 8.9 mg/dL (8.4-10.2); CREATININE, serum 1.16 mg/dL (0.72-1.25); POTASSIUM 4.1 mmol/L (3.5-4.5); TOTAL PROTEIN 6.9 gm/dL (6.2-8.1)
[2021-09-08 05:45] LABS: MUCOUS Present (NOT PRESENT); PH 5 (5-8); SQUAMOUS EPITHELIAL 0-2 /hpf (0-10); URINE APPEARANCE Hazy (CLEAR/HAZY); URINE BACTERIA None Seen /hpf (NONE SEEN); URINE BILIRUBIN Negative (NEGATIVE); URINE BLOOD 3+ (NEGATIVE); URINE COLOR Amber (YELLOW); URINE GLUCOSE Negative (NEGATIVE); URINE KETONE Negative (NEGATIVE); URINE LEUKOCYTE ESTERASE Negative (NEGATIVE); URINE NITRATE Negative (NEGATIVE); URINE PROTEIN(semi-quant) 1+ (NEGATIVE); URINE RBC >50 /hpf (0-2)
[2021-09-08 05:49] LABS: TROPONIN-I 0.01 ng/mL (0.00-0.033)
[2021-09-08] MEDS ORDERED: COUMADIN 22.5 MG/TAB PO (08:59)
--- NOTE | 2021-09-08 09:10 | NUR ---
Patient admitted to room 348. Med rec updated. Assessment completed. Consent was completed in the Er. Patient taken shortly after arrived to room to Or with Mela Or nurse.
[2021-09-08] MEDS ORDERED: NORCO 325 MG-51 TAB PO (09:26)
[2021-09-08] MEDS ORDERED: PYRIDIUM 100MG100 MG PO (09:26)
[2021-09-08 10:45] VITALS: BP 121/61; PULSE 82
[2021-09-08 11:00] VITALS: BP 107/67; PULSE 70
[2021-09-08 11:15] VITALS: BP 120/72; PULSE 71
[2021-09-08 11:34] VITALS: BP 135/64; PULSE 76
--- NOTE | 2021-09-08 11:41 | NUR ---
Patient post op. Doing well. Vss on room Air. Lunch ordered. Denies nausea. Patient has been up to the bathroom and voided. Reports pain is increased. One tab Roxicodone per orders for low abdominal pain. Will monitor.
[2021-09-08 12:00] VITALS: BP 132/73; PULSE 73
--- NOTE | 2021-09-08 12:28 | NUR ---
Taz nstopped by but nothing needed at this time.
[2021-09-08 12:30] VITALS: BP 117/73; PULSE 73; TEMP 98
--- NOTE | 2021-09-08 13:38 | NUR ---
Patient ready for discharge. All discharge criteria met. We reviewed all discharge paperwork. We discussed home med list & new scripts for norco & pyridum. medication safety reviewed. Patient aware he will need to call office Friday for a follow up appt. Patient also to call with any questions or concerns. Patient pain managed after Roxicodone. Vss on room air. Dennis wheeled out with all belogings.
== END 2021-09-08 13:30 | disposition home or self-care (01) ==
LOC: COL.ER 04:52 → SURG 06:43
PROVIDERS: Emergency Medicine; ADMIT Internal Medicine
DX: N20.1 Calculus of ureter (principal); I10 Essential (primary) hypertension; I48.0 Paroxysmal atrial fibrillation; I42.8 Other cardiomyopathies; I34.0 Nonrheumatic mitral (valve) insufficiency; I44.0 Atrioventricular block, first degree; I77.819 Aortic ectasia, unspecified site; J44.9 Chronic obstructive pulmonary disease, unspecified; N28.9 Disorder of kidney and ureter, unspecified; Z20.822 Contact with and (suspected) exposure to COVID-19; Z79.01 Long term (current) use of anticoagulants; Z87.891 Personal history of nicotine dependence; Z79.899 Other long term (current) drug therapy
CPT/HCPCS: C1769; G0378; J0690; J1100; J1170; J1885; J2405; J2704; J2765; J3010; Q9967